=== PATIENT | female | born 2000 | race Caucasian/White ===

== ENCOUNTER 2020-07-15 19:00 | Emergency (ER) | payer MEDICAID ==
[~2020-07-15] VITALS: Ht 149.9 cm; Wt 68.0 kg
[2020-07-15 21:13] LABS: BASOPHILS % 0.5 % (0.0-2.0); EOSINOPHILS % 1.2 % (0.0-5.0); HEMATOCRIT. 35.5 % (36.0-48.0); LYMPHOCYTES % 30.5 % (20.0-50.0); MEAN CORPUSCULAR HEMOGLOBIN 28.2 pg (28.0-32.0); MEAN CORPUSCULAR VOLUME 83.8 fL (81.0-99.0); MEAN PLATELET VOLUME 7.8 fl (7.4-10.4); MONOCYTES % 9.2 % (2.0-8.0); NEUTROPHILS % 58.6 % (40.0-76.0); PLATELET 324 x1000/uL (130-400); RED BLOOD CELL COUNT 4.24 mill/uL (4.2-5.4); RED CELL DISTRIBUTION WIDTH 15.1 % (11.6-14.6)
[2020-07-15 21:19] LABS: CHLORIDE 105 mEq/L (98-107)
[2020-07-15 21:42] LABS: B-HCG QUANTITATIVE 41491 mIU/mL (<3)
[2020-07-15 22:36] VITALS: BP 106/50
[2020-07-15 23:30] LABS: CLARITY URINE CLOUDY (CLEAR); COLOR URINE YELLOW (YELLOW); KETONES URINE NEGATIVE (NEGATIVE); LEUKOCYTE ESTERASE URINE NEGATIVE (NEGATIVE); NITRITE URINE NEGATIVE (NEGATIVE); OCCULT BLOOD URINE NEGATIVE (NEGATIVE); PROTEIN URINE NEGATIVE (NEGATIVE); SPECIFIC GRAVITY URINE 1.026 (1.005-1.030); UROBILINOGEN URINE 0.2 E.U./dL (0.2-1.0)
== END 2020-07-16 00:55 | disposition home or self-care (01) ==
LOC: ER 19:00
DX: O20.0 Threatened abortion (principal); Z3A.01 Less than 8 weeks gestation of pregnancy
CPT/HCPCS: 36415; 76801; 80053; 81003; 81025; 84702; 85025; 86850; 86900; 93005; 99285

== ENCOUNTER 2020-12-12 13:04 | Observation (INO) | payer MEDICAID, OTHER ==
[~2020-12-12] VITALS: Ht 149.9 cm; Wt 74.4 kg
[2020-12-12 15:15] LABS: CLARITY URINE CLEAR (CLEAR); COLOR URINE YELLOW (YELLOW); KETONES URINE NEGATIVE (NEGATIVE); LEUKOCYTE ESTERASE URINE NEGATIVE (NEGATIVE); NITRITE URINE NEGATIVE (NEGATIVE); OCCULT BLOOD URINE NEGATIVE (NEGATIVE); PROTEIN URINE NEGATIVE (NEGATIVE); SPECIFIC GRAVITY URINE 1.018 (1.005-1.030); UROBILINOGEN URINE 0.2 E.U./dL (0.2-1.0)
== END 2020-12-12 15:55 | disposition home or self-care (01) ==
LOC: 8 EST LDRP 13:04
PROVIDERS: ADMIT Obstetrics & Gynecology; ATTEND Obstetrics & Gynecology
DX: O26.893 Other specified pregnancy related conditions, third trimester (principal); R10.30 Lower abdominal pain, unspecified; Z3A.28 28 weeks gestation of pregnancy
CPT/HCPCS: 59025; 76805; 76817; 76818; 81003; G0378; 99281

== ENCOUNTER 2021-02-20 11:02 | Observation (INO) | payer MEDICAID, OTHER ==
[~2021-02-20] VITALS: Ht 149.9 cm; Wt 79.4 kg
[2021-02-20 14:09] LABS: CLARITY URINE CLEAR (CLEAR); COLOR URINE YELLOW (YELLOW); KETONES URINE TRACE (NEGATIVE); LEUKOCYTE ESTERASE URINE TRACE (NEGATIVE); NITRITE URINE NEGATIVE (NEGATIVE); OCCULT BLOOD URINE NEGATIVE (NEGATIVE); PROTEIN URINE NEGATIVE (NEGATIVE); SPECIFIC GRAVITY URINE 1.023 (1.005-1.030)
[2021-02-20] MEDS ORDERED: PNV1TABL76 MT (14:14)
== END 2021-02-20 14:45 | disposition home or self-care (01) ==
LOC: 8 EST LDRP 11:02
PROVIDERS: ADMIT Obstetrics & Gynecology; ATTEND Obstetrics & Gynecology
DX: O26.893 Other specified pregnancy related conditions, third trimester (principal); R51.9 Headache, unspecified; R11.0 Nausea; Z3A.38 38 weeks gestation of pregnancy
CPT/HCPCS: 59025; 76805; 76818; 81003; G0378; 99281

== ENCOUNTER 2021-02-25 06:17 | Inpatient (IN) | payer OTHER ==
[~2021-02-25] VITALS: Ht 149.9 cm; Wt 79.4 kg
[~2021-02-25 06:17] MED LIST: PNV1TABL76 MT
[2021-02-25] MEDS ORDERED: BUTORPHANOL TARTRATE 2 MG/ML VIAL IV PRN (08:30)
[2021-02-25] MEDS ORDERED: METHYLERGONOVINE MALEATE 0.2 MG/ML IM PRN (08:30)
[2021-02-25] MEDS ORDERED: LACTATED RINGERS 1,000 ML IV SCH (08:30)
[2021-02-25] MEDS ORDERED: DEXT 5%/LR + PITOCIN 20UNITS/L 1,000 ML IV SCH (08:30)
[2021-02-25] MEDS ORDERED: NALOXONE HCL 0.4 MG/ML 1ML VIAL IM PRN (08:30)
[2021-02-25 09:00] LABS: BASOPHILS % 0.3 % (0.0-2.0); EOSINOPHILS % 0.6 % (0.0-5.0); HEMATOCRIT. 36.5 % (36.0-48.0); HEMOGLOBIN. 12.6 g/dL (12.0-16.0); LYMPHOCYTES % 29.3 % (20.0-50.0); MEAN CORPUSCULAR HEMOGLOBIN 30.1 pg (28.0-32.0); MEAN CORPUSCULAR VOLUME 86.8 fL (81.0-99.0); MEAN PLATELET VOLUME 8.7 fl (7.4-10.4); MONOCYTES % 8.5 % (2.0-8.0); NEUTROPHILS % 61.3 % (40.0-76.0); PLATELET 203 x1000/uL (130-400); RED CELL DISTRIBUTION WIDTH 14.7 % (11.6-14.6)
[2021-02-25 09:09] LABS: INR 0.9; PARTIAL THROMBOPLASTIN TIME 27.8 sec (23.4-31.0); PROTHROMBIN TIME 10.2 sec (9.6-11.0)
[2021-02-25 09:11] LABS: CLARITY URINE CLEAR (CLEAR); COLOR URINE YELLOW (YELLOW); KETONES URINE 4+ (NEGATIVE); LEUKOCYTE ESTERASE URINE NEGATIVE (NEGATIVE); NITRITE URINE NEGATIVE (NEGATIVE); OCCULT BLOOD URINE NEGATIVE (NEGATIVE); PH URINE 6.5 (4.5-8.0); PROTEIN URINE NEGATIVE (NEGATIVE); UROBILINOGEN URINE 0.2 E.U./dL (0.2-1.0)
[2021-02-25] MEDS ORDERED: CITRIC ACID/SODIUM CITRATE SOLN 30ML UDC PO NR ×2 (09:30→10:15)
[2021-02-25 09:38] LABS: *AMPHETAMINES SCREEN URINE NEGATIVE (NEGATIVE); *BARBITURATES SCREEN URINE NEGATIVE (NEGATIVE); *BENZODIAZEPINES SCREEN URINE NEGATIVE (NEGATIVE); *COCAINE SCREEN URINE NEGATIVE (NEGATIVE); METHADONE URINE SCREEN NEGATIVE (NEGATIVE); OPIATES URINE SCREEN NEGATIVE (NEGATIVE)
[2021-02-25 09:39] LABS: CANNABINOID URINE SCREEN NEGATIVE (NEGATIVE); PHENCYCLIDINE URINE SCREEN NEGATIVE (NEGATIVE)
[2021-02-25] MEDS ORDERED: MORPHINE SULFATE/PF 1MG/ML 10ML AMP ONE (10:48)
[2021-02-25] MEDS ORDERED: SODIUM CHLORIDE 0.9% 10ML VIAL ONE (10:51)
[2021-02-25] MEDS ORDERED: CEFAZOLIN SODIUM 1000MG/VIAL ONE (10:51)
[2021-02-25] MEDS ORDERED: EPHEDRINE SULFATE 50MG/ML VIAL ONE (10:51)
[2021-02-25] MEDS ORDERED: DEXAMETHASONE 4MG/ML 1ML VIAL ONE (10:51)
[2021-02-25] MEDS ORDERED: KETOROLAC 60MG/2ML VIAL IM ONE (10:51)
[2021-02-25] MEDS ORDERED: ONDANSETRON HCL 4MG/2ML INJ ONE (10:51)
[2021-02-25] MEDS ORDERED: OXYTOCIN 10 UNITS/ML 1ML ONE (10:51)
[2021-02-25] MEDS ORDERED: NALOXONE HCL 0.4 MG/ML 1ML VIAL IV PRN ×2 (12:45→20:45)
[2021-02-25] MEDS ORDERED: RHO(D) IMMUNE GLOBULIN 300 MCG/SYR IM PRN (13:00)
[2021-02-25] MEDS ORDERED: BISACODYL 10MG SUPP PR PRN (13:00)
[2021-02-25] MEDS ORDERED: HYDROMORPHONE HCL/PF 2MG/ML CPJ IM PRN (13:00)
[2021-02-25] MEDS ORDERED: IBUPROFEN 400MG TABLET PO PRN (13:00)
[2021-02-25 13:04] LABS: HEPATITIS B SURFACE ANTIGEN NEGATIVE
[2021-02-25] MEDS: DEXT 5%/LR + PITOCIN 20UNITS/L 1,000 ML IV SCH ×2 (13:30→18:10)
[2021-02-25 15:10] VITALS: BP 103/54
[2021-02-25 20:00] VITALS: BP 104/45
[2021-02-25] MEDS ORDERED: DIPHENHYDRAMINE 50MG/ML VIAL IM PRN (20:45)
[2021-02-25] MEDS ORDERED: ONDANSETRON HCL 4MG/2ML INJ IV PRN (20:45)
[2021-02-25] MEDS ORDERED: KETOROLAC 30MG/ML VIAL IV PRN (21:00)
[2021-02-25] MEDS: DOCUSATE SODIUM 100MG CAPSULE PO SCH (21:00)
[2021-02-25] MEDS ORDERED: DIPHENHYDRAMINE 50MG/ML VIAL IV PRN (21:05)
[2021-02-26] VITALS: BP 101/40
[2021-02-26] MEDS: DIPHENHYDRAMINE 50MG/ML VIAL IV PRN ×2 (02:10→08:51)
[2021-02-26 04:00] VITALS: BP 93/41
[2021-02-26 06:46] LABS: BASOPHILS % 0.4 % (0.0-2.0); EOSINOPHILS % 0.7 % (0.0-5.0); HEMATOCRIT. 34.6 % (36.0-48.0); LYMPHOCYTES % 27.6 % (20.0-50.0); MEAN CORPUSCULAR HEMOGLOBIN 30.6 pg (28.0-32.0); MEAN CORPUSCULAR VOLUME 88.6 fL (81.0-99.0); MONOCYTES % 10.4 % (2.0-8.0); NEUTROPHILS % 60.9 % (40.0-76.0); PLATELET 185 x1000/uL (130-400); RED BLOOD CELL COUNT 3.91 mill/uL (4.2-5.4); RED CELL DISTRIBUTION WIDTH 14.6 % (11.6-14.6)
[2021-02-26 07:30] VITALS: BP 96/54
[2021-02-26] MEDS: PRENATAL VIT/FE FUMARATE/FA TABLET PO SCH (08:51)
[2021-02-26] MEDS: FERROUS SULFATE 325MG TABLET PO SCH (08:51)
[2021-02-26] MEDS: IBUPROFEN 800MG TABLET PO PRN ×2 (15:55→21:55)
[2021-02-26 17:00] VITALS: BP 94/60
[2021-02-26 20:00] VITALS: BP 95/49
[2021-02-26] MEDS: DOCUSATE SODIUM 100MG CAPSULE PO SCH (21:49)
[2021-02-27] VITALS: BP 92/50
[2021-02-27 04:00] VITALS: BP 96/47
[2021-02-27] MEDS: PRENATAL VIT/FE FUMARATE/FA TABLET PO SCH (07:42)
[2021-02-27] MEDS: FERROUS SULFATE 325MG TABLET PO SCH (07:43)
[2021-02-27] MEDS: IBUPROFEN 800MG TABLET PO PRN (07:43)
[2021-02-27 08:00] VITALS: BP 111/60
[2021-02-27] MEDS ORDERED: IBUP-2030 PO (12:51)
== END 2021-02-27 15:45 | disposition home or self-care (01) | DRG 540 ==
LOC: OBSVTOIN 06:17 → 8 EST LDRP 06:17 → 8EST 15:02
PROVIDERS: ADMIT Obstetrics & Gynecology; ATTEND Obstetrics & Gynecology
PROC: 10D00Z1 Extraction of Products of Conception, Low, Open Approach (ICD-10-PCS; principal; 2021-02-25)
DX: O36.63X0 Maternal care for excessive fetal growth, third trimester, not applicable or unspecified (principal); Z20.822 Contact with and (suspected) exposure to COVID-19; Z37.0 Single live birth; Z3A.39 39 weeks gestation of pregnancy; Z83.3 Family history of diabetes mellitus; Z79.899 Other long term (current) drug therapy
CPT/HCPCS: 36415; 76805; 76818; 80305; 81003; 82962; 85025; 86592; 86703; 86762; 86850; 86900; 87340; 87426; 88307; 99281; J0690; J1100; J1200; J1885; J2274; J2405; J2590; J3490; J7120; A4315